=== PATIENT | male | born 1980 ===

== ENCOUNTER 2017-03-16 12:10 | Emergency (ER) | payer MEDICAID, OTHER ==
[2017-03-16 12:26] VITALS: BP 105/74; PULSE 96; RESP 18; TEMP 98.6; O2SAT 98
[2017-03-16] MEDS ORDERED: Lidocaine 2% Inj (20ml) INFIL STA (12:51)
[2017-03-16] MEDS ORDERED: Lidocaine 2% Inj (20ml) ONE (12:53)
[2017-03-16] MEDS ORDERED: HYDROmorphone 0.5 mg/0.5 ml ISec IM STA (12:54)
[2017-03-16] MEDS ORDERED: HYDROmorphone 1 mg/ml ISec ONE (12:57)
--- NOTE | 2017-03-16 13:33 | C.PDOC ---
History Of Present Illness 36 y/o male returns to ED for re-evaluation of abscess to buttock with associated pain and swelling for 1 week. Patient was seen at ED 2 days ago and was told abscess was not ready to be drained and asked to come back today. Pain is rated 10/10 and is described as stinging not allowing him to sit down and with radiation to back increased with palpation and movement. Patient denies fever, chills, n/v/d or any other complaints at this time. Time Seen by Provider: 03/16/17 12:34 Chief Complaint (Nursing): Abnormal Skin Integrity History Per: Patient History/Exam Limitations: no limitations Onset/Duration Of Symptoms: Days Current Symptoms Are (Timing): Still Present Location Of Injury: Anterior: Buttock Quality Of Symptoms: Painful Past Medical History Reviewed: Historical Data, Nursing Documentation, Vital Signs Vital Signs: Last Vital Signs Temp 98.6 F 03/16/17 12:24 Pulse 96 H 03/16/17 12:24 Resp 18 03/16/17 13:41 BP 105/74 03/16/17 12:24 Pulse Ox 98 03/16/17 15:49 Family History: States: Unknown Family Hx - Social History Hx Tobacco Use: Yes Hx Alcohol Use: Yes Hx Substance Use: No - Immunization History Hx Tetanus Toxoid Vaccination: No Hx Influenza Vaccination: Yes Hx Pneumococcal Vaccination: No Review Of Systems Except As Marked, All Systems Reviewed And Found Negative. Constitutional: Negative for: Fever, Chills Gastrointestinal: Negative for: Nausea, Vomiting, Diarrhea Musculoskeletal: Positive for: Back Pain Skin: Negative for: Rash Physical Exam - Physical Exam Appears: Non-toxic, No Acute Distress Skin: Normal Color, Warm Head: Atraumatic, Normacephalic Extremity: Capillary Refill (<2 seconds), Other (8cm circular region of enduration and erythema very tender to touch at 12 o'clock yaya over anus, Area is endurated, not flunctuant and very tender) Neurological/Psych: Oriented x3, Normal Motor, Normal Sensation, Normal Reflexes ED Course And Treatment O2 Sat by Pulse Oximetry: 98 (RA) Pulse Ox Interpretation: Normal - Incision & Drainage Of Abscess Anesthesia: Lidocaine 2% Prep Used: Sterile Water Procedure: Drained Pus, Irrigated Cavity W/Saline, Packed W/Gauze Medical Decision Making Medical Decision Making: Pain medication: IM Patient instructed to follow up with PMD in 2 days for changing of packing to area Disposition Counseled Patient/Family Regarding: Diagnosis, Need For Followup, Rx Given - Disposition Disposition: HOME/ ROUTINE Disposition Time: 13:31 Condition: STABLE Additional Instructions: Follow up in clinic. You will need to see a surgeon. In the mean time, follow up in the Emergency Department in 2 days for wound check. Prescriptions: Ibuprofen [Motrin] 600 mg PO TID #15 tab Instructions: Abscess Incision and Drainage (ED) Forms: General Discharge Instructions - POA Present On Arrival: None - Clinical Impression Clinical Impression: Abscess - Scribe Statement The provider has reviewed the documentation as recorded by the Ivaibshakeel Mari All medical record entries made by the Ivaibshakeel were at my direction and personally dictated by me. I have reviewed the chart and agree that the record accurately reflects my personal performance of the history, physical exam, medical decision making, and the department course for this patient. I have also personally directed, reviewed, and agree with the discharge instructions and disposition.
== END 2017-03-16 13:42 | disposition home or self-care (01) ==
LOC: C.ER 12:10
DX: L02.31 Cutaneous abscess of buttock (principal)
CPT/HCPCS: 10060; 96372; 99283; J1170

== ENCOUNTER 2017-10-29 10:02 | Emergency (ER) | payer MEDICAID, OTHER ==
[2017-10-29] MEDS ORDERED: Lidocaine 2% w Epi 1:100,000 Inj IJ ONE ×2 (11:00→11:02)
[2017-10-29] MEDS ORDERED: Oxycodone/Acetaminophen 5/325 mg Tab PO STA (11:00)
--- NOTE | 2017-10-29 11:03 | C.PDOC ---
History Of Present Illness RECUR LOWER BACK PAIN, SWELLING X 2 DAYS. NO DC. "FEELS LIKE LAST TIME", PS THIS IS 2ND EPISODE OF SAME. S/P I&D 02/2017. NO DC. EXAM MILD DIST NONTOXIC SKIN +PILONIDAL ABSCESS NO DC. MIN ERYTHEMA REMAINDER NEG Time Seen by Provider: 10/29/17 10:46 Chief Complaint (Nursing): Abnormal Skin Integrity History Per: Patient History/Exam Limitations: no limitations Onset/Duration Of Symptoms: Days (2) Past Medical History Reviewed: Historical Data, Nursing Documentation, Vital Signs Vital Signs: Last Vital Signs Temp 98.6 F 10/29/17 10:16 Pulse 103 H 10/29/17 10:16 Resp 20 10/29/17 10:16 BP 122/77 10/29/17 10:16 Pulse Ox 97 10/29/17 11:22 Family History: States: No Known Family Hx, Unknown Family Hx - Social History Hx Tobacco Use: Yes Hx Alcohol Use: Yes Hx Substance Use: No - Immunization History Hx Tetanus Toxoid Vaccination: No Hx Influenza Vaccination: Yes Hx Pneumococcal Vaccination: No Review Of Systems Except As Marked, All Systems Reviewed And Found Negative. Constitutional: Negative for: Fever Gastrointestinal: Negative for: Nausea, Vomiting, Abdominal Pain, Diarrhea Genitourinary: Negative for: Dysuria, Hematuria Musculoskeletal: Positive for: Back Pain (lower back pain and swelling) Neurological: Negative for: Weakness, Numbness Physical Exam - Physical Exam Appears: Non-toxic, In Acute Distress (mild) Skin: Warm, Dry, No Rash, Other ((+) pilonidal abscess, minimal erythema (-) no discharge) Oral Mucosa: Moist Respiratory: Normal Breath Sounds Back: Normal Inspection, No CVA Tenderness Extremity: Normal ROM, No Swelling Neurological/Psych: Oriented x3, Normal Speech ED Course And Treatment O2 Sat by Pulse Oximetry: 97 (RA) Pulse Ox Interpretation: Normal Reevaluation Time: 11:46 Reassessment Condition: Improved (PT ADVISED MAY NEED GEN SURG EVAL IF RECURRENT ABSCESSES IN SAME AREA.) - Incision & Drainage Of Abscess Anesthesia: Lidocaine 2%, With Epi Prep Used: Betadine Procedure: Incised W/Scalpel Blade#: (11), Drained Pus, Irrigated Cavity W/ Saline, Probed To Break Up Loculations, Packed W/Gauze Medical Decision Making Medical Decision Making: PLAN: * Motrin PO * Zofran PO * Percocet PO Disposition Discussed With : Mila Counseled Patient/Family Regarding: Diagnosis, Need For Followup, Rx Given - Disposition Referrals: YOUR,PMD [Other] N EMERGENCY DEPARTMENT [Provider Group] Disposition: HOME/ ROUTINE Disposition Time: 11:46 Condition: IMPROVED Additional Instructions: RETURN 2-3 DAYS FOR WOUND REEVALUATION, POSSIBLE PACKING CHANGE Prescriptions: Ibuprofen [Motrin] 600 mg PO Q6 #30 tab Instructions: Abscess Incision and Drainage (ED) Forms: [employer] (Wolof) - Clinical Impression Clinical Impression: Pilonidal abscess - Scribe Statement The provider has reviewed the documentation as recorded by the Sejal Rogers Provider Attestation: All medical record entries made by the Sejal were at my direction and personally dictated by me. I have reviewed the chart and agree that the record accurately reflects my personal performance of the history, physical exam, medical decision making, and the department course for this patient. I have also personally directed, reviewed, and agree with the discharge instructions and disposition.
[2017-10-29] MEDS ORDERED: Oxycodone/Acetaminophen 5/325 mg Tab ONE (11:06)
[2017-10-29 12:17] VITALS: BP 119/85; PULSE 79; RESP 16; TEMP 97.8; O2SAT 98
== END 2017-10-29 12:16 | disposition home or self-care (01) ==
LOC: C.ER 10:02
DX: L05.01 Pilonidal cyst with abscess (principal)

== ENCOUNTER 2018-02-20 08:58 | Emergency (ER) | payer MEDICAID, OTHER ==
[2018-02-20 09:06] VITALS: BP 127/77; PULSE 91; RESP 18; TEMP 98.8; O2SAT 99
[2018-02-20] MEDS ORDERED: Lidocaine 1% Inj (20ml) INFIL STA (09:53)
[2018-02-20] MEDS ORDERED: Hydrocodone/Acetaminophen 5 mg /300 mg Tab PO STA (09:53)
[2018-02-20] MEDS ORDERED: Lidocaine Hydrochloride 10 ML INJ ONE (09:58)
[2018-02-20] MEDS ORDERED: Oxycodone/Acetaminophen 5/325 mg Tab ONE (09:58)
[2018-02-20] MEDS ORDERED: Oxycodone/Acetaminophen 5/325 mg Tab PO STA (10:11)
--- NOTE | 2018-02-20 10:15 | C.PDOC ---
History Of Present Illness 37-year-old male presents to the emergency department with complaints of an abscess to his sacral area that developed three days ago. Patient has not been seen for symptoms by surgeon yet, however he has had prior episodes of this type of abscess. He denies fever, nausea/vomiting, drainage from the area. Time Seen by Provider: 02/20/18 09:08 Chief Complaint (Nursing): Abnormal Skin Integrity History Per: Patient History/Exam Limitations: no limitations Onset/Duration Of Symptoms: Days (3) Current Symptoms Are (Timing): Still Present Quality Of Symptoms: Painful Severity: Moderate Past Medical History Reviewed: Historical Data, Nursing Documentation, Vital Signs Vital Signs: Last Vital Signs Temp 98.8 F 02/20/18 09:04 Pulse 91 H 02/20/18 09:04 Resp 18 02/20/18 09:04 BP 127/77 02/20/18 09:04 Pulse Ox 99 02/20/18 11:28 - Medical History PMH: No Chronic Diseases Family History: States: No Known Family Hx - Social History Hx Tobacco Use: Yes Hx Alcohol Use: No Hx Substance Use: No - Immunization History Hx Tetanus Toxoid Vaccination: No Hx Influenza Vaccination: No Hx Pneumococcal Vaccination: No Review Of Systems Constitutional: Negative for: Fever, Chills Gastrointestinal: Negative for: Nausea, Vomiting, Abdominal Pain Skin: Positive for: Other (abscess to sacral area) Physical Exam - Physical Exam Appears: Well, Non-toxic, Other (appears uncomfortable ) Skin: Normal Color, Warm, Dry, No Rash, Other (approx 4cm erythematous pilonidal abscess, fluctuant and tender to palpation, at gluteal cleft) Head: Normacephalic Eye(s): bilateral: Normal Inspection Oral Mucosa: Moist Cardiovascular: Rhythm Regular Respiratory: Normal Breath Sounds, No Rales, No Rhonchi, No Wheezing Gastrointestinal/Abdominal: Normal Exam, Bowel Sounds, Soft, No Tenderness Neurological/Psych: Oriented x3 ED Course And Treatment O2 Sat by Pulse Oximetry: 99 (RA) Pulse Ox Interpretation: Normal Progress Note: Patient given PO Percocet and Clindamycin in ED. I&D of pilonidal abscess done by me, patient tolerated procedure well. Wound culture obtained and sent to lab. He was instructed to return to ED in 48 hrs for wound check and packing removal, and he understands that he needs follow up with general surgeon for definitive treatment/removal of his recurrent pilonidal abscesses. Reassessment Condition: Improved - Incision & Drainage Of Abscess Anesthesia: Lidocaine 1% (approx 4ml local infiltration) Prep Used: Betadine Procedure: Incised W/Scalpel Blade#: (11), Drained Pus (10mL), Probed To Break Up Loculations, Packed W/Gauze, Cultures Obtained And Sent To Lab Disposition Counseled Patient/Family Regarding: Studies Performed, Diagnosis, Need For Followup, Rx Given - Disposition Referrals: Alfonzo Elkins MD [Staff Provider] - Disposition: HOME/ ROUTINE Disposition Time: 10:15 Condition: STABLE Additional Instructions: FOLLOW UP WITH GENERAL SURGEON WITHIN 1 WEEK RETURN TO ER IN 48 HOURS FOR WOUND CHECK Prescriptions: Clindamycin [Cleocin] 300 mg PO Q6 #21 cap oxyCODONE/Acetaminophen [Percocet 5/325 mg Tab] 1 tab PO QID PRN #12 tab PRN Reason: Pain Instructions: Skin Abscess, Pilonidal Cyst (DC) Forms: [employer] (Bulgarian), Work Excuse Print Language: GREENLANDIC - Clinical Impression Clinical Impression: Pilonidal abscess - Scribe Statement The provider has reviewed the documentation as recorded by the Scribe (Araceli Duran) All medical record entries made by the Scribe were at my direction and personally dictated by me. I have reviewed the chart and agree that the record accurately reflects my personal performance of the history, physical exam, medical decision making, and the department course for this patient. I have also personally directed, reviewed, and agree with the discharge instructions and disposition.
== END 2018-02-20 10:48 | disposition home or self-care (01) ==
LOC: C.ER 08:58
DX: L05.01 Pilonidal cyst with abscess (principal)

== ENCOUNTER 2018-04-26 10:59 | Emergency (ER) | payer OTHER ==
[2018-04-26 11:12] VITALS: BP 119/68; PULSE 92; RESP 18; TEMP 98.7; O2SAT 96
[2018-04-26] MEDS ORDERED: Lidocaine 2% MPF (5 ml) Inj ONE (11:34)
[2018-04-26] MEDS ORDERED: Oxycodone/Acetaminophen 5/325 mg Tab PO STA (12:15)
[2018-04-26] MEDS ORDERED: Oxycodone/Acetaminophen 5/325 mg Tab ONE (12:25)
--- NOTE | 2018-04-26 13:55 | C.PDOC ---
History Of Present Illness 37 y/o male presents to the ED with complaint of recurrent sacral abscesses. States this is the 3rd abscess in the past 2 months. Patient was seen here 2 months ago but did not follow up with general surgery as instructed. Otherwise he denies any fever, chills, or drainage from area. Time Seen by Provider: 04/26/18 11:29 Chief Complaint (Nursing): Abnormal Skin Integrity History Per: Patient History/Exam Limitations: no limitations Onset/Duration Of Symptoms: Days Current Symptoms Are (Timing): Still Present Past Medical History Reviewed: Historical Data, Nursing Documentation, Vital Signs Vital Signs: Last Vital Signs Temp 98.7 F 04/26/18 11:09 Pulse 92 H 04/26/18 11:09 Resp 18 04/26/18 11:09 BP 119/68 04/26/18 11:09 Pulse Ox 96 04/26/18 14:00 Family History: States: Unknown Family Hx - Social History Hx Tobacco Use: Yes Hx Alcohol Use: No Hx Substance Use: No - Immunization History Hx Tetanus Toxoid Vaccination: No Hx Influenza Vaccination: No Hx Pneumococcal Vaccination: No Review Of Systems Except As Marked, All Systems Reviewed And Found Negative. Constitutional: Negative for: Fever, Chills Skin: Positive for: Other (abscess to sacral area). Negative for: Rash Neurological: Negative for: Weakness, Numbness Physical Exam - Physical Exam Appears: Non-toxic, No Acute Distress Skin: Normal Color, Warm, No Rash Head: Atraumatic, Normacephalic Eye(s): bilateral: Normal Inspection Neck: Normal ROM, Supple Chest: Symmetrical Back: Other (fluctuant cyst in sacral region, tender to palpation, no erythema) Extremity: Bilateral: Atraumatic, Normal Color And Temperature, Normal ROM Neurological/Psych: Oriented x3, Normal Speech Gait: Steady ED Course And Treatment O2 Sat by Pulse Oximetry: 96 (RA) Pulse Ox Interpretation: Normal - Incision & Drainage Of Abscess Anesthesia: Lidocaine 1% Prep Used: Sterile Water Procedure: Incised W/Scalpel Blade#: (11), Drained Pus, Irrigated Cavity W/ Saline, Cultures Obtained And Sent To Lab Medical Decision Making Medical Decision Making: Impression: 37 year old with sacral abscess Plan: --I&D performed --Percocet 1 tab PO given Patient is stable for discharge home. Instructed to follow up with PMD and general surgeon for further evaluation. Disposition Counseled Patient/Family Regarding: Diagnosis, Need For Followup - Disposition Referrals: Irving Gan MD [Staff Provider] - Disposition: HOME/ ROUTINE Disposition Time: 11:55 Condition: IMPROVED Additional Instructions: KYLE AMATO, thank you for letting us take care of you today. Your provider was Joselo Cesar DO and you were treated for ABSCESS. The emergency medical care you received today was directed at your acute symptoms. If you were prescribed any medication, please fill it and take as directed. It may take several days for your symptoms to resolve. Return to the Emergency Department if your symptoms worsen, do not improve, or if you have any other problems. Please contact your doctor or call one of the physicians/clinics you have been referred to that are listed on the Patient Visit Information form that is included in your discharge packet. Bring any paperwork you were given at discharge with you along with any medications you are taking to your follow up visit. Our treatment cannot replace ongoing medical care by a primary care provider outside of the emergency department. Thank you for allowing the [facility] team to be part of your care today. Please follow up with the general surgeon in 3-5 days for your recurrent abscesses. Instructions: Pilonidal Cyst Forms: [employer] (Tajik) - Clinical Impression Clinical Impression: Pilonidal abscess - Scribe Statement The provider has reviewed the documentation as recorded by the Scribe (Alisson Burger) Provider Attestation: All medical record entries made by the Scribe were at my direction and personally dictated by me. I have reviewed the chart and agree that the record accurately reflects my personal performance of the history, physical exam, medical decision making, and the department course for this patient. I have also personally directed, reviewed, and agree with the discharge instructions and disposition.
== END 2018-04-26 12:23 | disposition home or self-care (01) ==
LOC: C.ER 10:59
DX: L05.01 Pilonidal cyst with abscess (principal)

== ENCOUNTER 2018-08-06 10:27 | Emergency (ER) | payer OTHER ==
[2018-08-06 10:32] VITALS: BMI 26.9
[2018-08-06 10:33] VITALS: BP 120/73; RESP 18; TEMP 98.2
--- NOTE | 2018-08-06 11:02 | C.PDOC ---
History Of Present Illness 38 year old male presents to the ED complaining of recurrent pilonidal abscess for 3 days. (+) subjective fever. Reports the abscess popped on his way to the ED. Denies taking any medications for the pain. Denies abdominal pain, rectal pain, or change in bowl movements. Pt has had multiple i&Ds in the past, told to f/u with surgery but has not done so. Time Seen by Provider: 08/06/18 10:39 Chief Complaint (Nursing): Abnormal Skin Integrity History Per: Patient History/Exam Limitations: no limitations Onset/Duration Of Symptoms: Days (3) Current Symptoms Are (Timing): Still Present Location Of Injury: Left: Buttock (pilonidal abscess) Quality Of Symptoms: Painful, Swollen, Draining Past Medical History Reviewed: Historical Data, Nursing Documentation, Vital Signs Vital Signs: Last Vital Signs Temp 98.2 F 08/06/18 10:32 Pulse 106 H 08/06/18 10:32 Resp 18 08/06/18 10:32 BP 120/73 08/06/18 10:32 Pulse Ox 99 08/06/18 10:32 - Medical History PMH: No Chronic Diseases Other Surgeries: Hx of surgeries Family History: States: No Known Family Hx - Social History Hx Tobacco Use: Yes Hx Alcohol Use: Yes Hx Substance Use: No (Denied) - Immunization History Hx Tetanus Toxoid Vaccination: No Hx Influenza Vaccination: No Hx Pneumococcal Vaccination: No Review Of Systems Except As Marked, All Systems Reviewed And Found Negative. Constitutional: Positive for: Fever. Negative for: Chills Skin: Positive for: Other (pilonidal abscess) Physical Exam - Physical Exam Appears: Non-toxic, No Acute Distress Skin: Warm, Dry, Other ((+) tenderness, swelling, erythema to the pilonidal area with fluctuance , some yellow discharge ) Head: Normacephalic Eye(s): bilateral: Normal Inspection, EOMI Nose: Normal Oral Mucosa: Moist Chest: Symmetrical Respiratory: No Accessory Muscle Use, Other (speaking in full sentences) Extremity: Normal ROM Neurological/Psych: Oriented x3, Normal Speech Gait: Steady ED Course And Treatment O2 Sat by Pulse Oximetry: 99 (RA) Pulse Ox Interpretation: Normal Progress Note: Discussed the need for I&D. Pt declines and requests antibiotics. Pt and significant other were told that treatment for abscess is drainage and it will not improve without it. Pt verbalizes understanding. The patient declines I&D as recommended. Pt made informed refusal. The risks of refusing were explained to the patient and include, but are not limited to, worsening of known or currently unknown conditions, permanent disability and from undiagnosed or untreated conditions. The patient has the capacity to make this decision and has the capacity to understand the clinical situation and my explanation of the risks of refusing this test. The patient voluntarily accepts these risks. The patient was given the opportunity to ask questions and reconsider. Disposition - Disposition Disposition: HOME/ ROUTINE Disposition Time: 11:20 Condition: STABLE Additional Instructions: Apply warm compresses. Wound check in 2 days. Return to ER if symptoms persist or worsen. Prescriptions: Clindamycin [Cleocin] 300 mg PO Q6 #28 cap Instructions: Abscess Incision and Drainage (DC) Forms: [employer] (Tunisian) - Clinical Impression Clinical Impression: Pilonidal abscess - PA / SHREDDER OPERATOR / Resident Statement MD/DO has reviewed & agrees with the documentation as recorded. - Scribe Statement The provider has reviewed the documentation as recorded by the Ivaibshakeel Calderon All medical record entries made by the Sejal were at my direction and personally dictated by me. I have reviewed the chart and agree that the record accurately reflects my personal performance of the history, physical exam, medical decision making, and the department course for this patient. I have also personally directed, reviewed, and agree with the discharge instructions and disposition.
[2018-08-06 11:25] VITALS: PULSE 94
[2018-08-06 15:51] VITALS: O2SAT 99
== END 2018-08-06 11:28 | disposition home or self-care (01) ==
LOC: C.ER 10:27
DX: L05.01 Pilonidal cyst with abscess (principal)